=== PATIENT | male | born 1985 | race African-American/Black ===

== ENCOUNTER 2021-05-09 20:15 | Emergency (ER) | payer OTHER ==
[2021-05-09 20:30] LABS: BILIRUBIN,URINE NEGATIVE (NEGATIVE); GLUCOSE, URINE (UA) NEGATIVE (NEGATIVE); KETONES,URINE (UA) NEGATIVE (NEGATIVE); LEUKOCYTE ESTERASE, URINE NEGATIVE (NEGATIVE); NITRITE,URINE NEGATIVE (NEGATIVE); OCCULT BLOOD,URINE LARGE (NEGATIVE); PH,URINE 6.5 PH (5.0-7.5); PROTEIN,URINE 30 mg/dL (NEGATIVE); UROBILINOGEN,URINE 1 (NORMAL) E.U./dL (NORMAL)
[2021-05-09 20:43] LABS: CLARITY,URINE CLOUDY (CLEAR)
[2021-05-09 20:44] LABS: BACTERIA,URINE Few /HPF (None Seen); MUCUS,URINE Marked Strands; RBC,URINE TNTC /HPF (0-5); SQUAMOUS EPITHELIAL CELL,UR RARE Squamous (<= Few); YEAST,URINE PRESENT
--- NOTE | 2021-05-09 22:29 | ED Physician Documentation ---
History of Present Illness - Stated complaint Stated Complaint: BLOOD IN URINE - Chief complaint Chief Complaint: General - History obtained from History obtained from: Patient - Additonal information Additional information: The patient comes to the emergency department with chief complaint of new onset hematuria today. He states is been feeling fine, but noticed that his urine seemed "dark" and slightly red this morning. He states he drank a bunch of water and it seemed to clear up, but then later in the day, he noticed the same thing. He again drink a lot of water and it seemed to clear up, but that when he noticed it a third time this evening, he decided to come in and get checked out. He denies any pain. He feels occasionally a slight pressure in his suprapubic area but no dysuria. No fevers or chills. No nausea or vomiting. No other complaints at this time. Review of Systems Ten Systems: 10 systems reviewed and negative Constitutional: reports: Reviewed and negative Eyes: reports: Reviewed and negative Ears: reports: Reviewed and negative Nose: reports: Reviewed and negative Throat: reports: Reviewed and negative Cardiac: reports: Reviewed and negative Respiratory: reports: Reviewed and negative GI: reports: Reviewed and negative : reports: Hematuria Skin: reports: Reviewed and negative Musculoskeletal: reports: Reviewed and negative Neurologic: reports: Reviewed and negative Psychiatric: reports: Reviewed and negative Endocrine: reports: Reviewed and negative Immunocompromised: reports: Reviewed and negative PD PAST MEDICAL HISTORY - Past Medical History Past Medical History: No - Past Surgical History Past Surgical History: No - Present Medications Home Medications: Ambulatory Orders Medication Instructions Recorded Confirmed No Known Home Medications 05/09/21 05/09/21 - Allergies Allergies/Adverse Reactions: Allergies Allergy/AdvReac Type Severity Reaction Status Date / Time No Known Drug Allergies Allergy Verified 05/09/21 20:17 - Social History Does the pt smoke?: No Smoking Status: Never smoker Does the pt drink ETOH?: Yes Does the pt have substance abuse?: No - Immunizations Immunizations are current?: Yes - POLST Patient has POLST: No PD ED PE NORMAL - Vitals Vital signs reviewed: Yes - General General: Alert and oriented X 3, No acute distress, Well developed/nourished - HEENT HEENT: Atraumatic, PERRL, EOMI, Moist mucous membranes - Neck Neck: Supple, no meningeal sign - Cardiac Cardiac: RRR, No murmur - Respiratory Respiratory: No respiratory distress, Clear bilaterally - Abdomen Abdomen: Soft, Non tender, Non distended - Back Back: No CVA TTP - Derm Derm: Normal color, Warm and dry, No rash - Extremities Extremities: No deformity - Neuro Neuro: Alert and oriented X 3, network management specialist 2-12 intact, Normal speech - Psych Psych: Normal mood, Normal affect Results - Vitals Vitals: Vital Signs - 24 hr 05/09/21 05/09/21 05/09/21 20:17 21:17 22:02 Temperature 36.5 C 36.5 C Heart Rate 52 L 58 L Respiratory 16 15 15 Rate Blood Pressure 152/88 H 155/91 H O2 Saturation 99 100 05/09/21 23:08 Temperature 36.5 C Heart Rate 61 Respiratory 16 Rate Blood Pressure 140/88 H O2 Saturation 99 Oxygen O2 Source Room air - Labs Labs: Laboratory Tests 05/09/21 20:22 Urine Color RED/BLOODY Urine Clarity CLOUDY Urine pH 6.5 Ur Specific [place] 1.025 Urine Protein 30 H Urine Glucose (UA) NEGATIVE Urine Ketones NEGATIVE Urine Occult Blood LARGE H Urine Nitrite NEGATIVE Urine Bilirubin NEGATIVE Urine Urobilinogen 1 (NORMAL) Ur Leukocyte Esterase NEGATIVE Urine RBC TNTC H Urine WBC 6-10 H Ur Squamous Epith Cells RARE Squamous Urine Bacteria Few Urine Mucus Marked Strands Urine Yeast PRESENT Ur Microscopic Review INDICATED Urine Culture Comments NOT INDICATED PD MEDICAL DECISION MAKING - ED course Complexity details: reviewed results, re-evaluated patient, considered differential, d/w patient ED course: The patient was worked up with urinalysis, which showed significant hematuria but no signs of infection, as well as a CT scan of the abdomen and pelvis, which showed 2 stones in the left kidney and a cyst on the right kidney. I discussed with the patient that we have no evidence to point to any reason for his hematuria at this time. The stones visualized in the left kidney are in the kidney still, and not in the process of passage through the ureter. I have advised patient that he needs to follow-up with urology if the bleeding continues . We have discussed the need to drink plenty of fluid and we discu ssed the usual indications for return. Departure - Departure Disposition: 01 Home, Self Care Clinical Impression: Hematuria Qualifiers: Hematuria type: unspecified type Qualified Code(s): R31.9 - Hematuria, unspecified Condition: Stable Instructions: ED Hematuria Comments: You have a cyst on the right kidney and 2 stones in the left kidney which do not appear to be passing at this time. At this point, your urine does not show infection and it is not clear what has caused you to have the bleeding tonight. It is possible that one of your stone shifted and caused some bleeding, although usually should not cause this much. Occasionally cyst can bleed but again this is not very common. You will need to follow-up with the urologist to determine why you are bleeding if your bleeding continues. Otherwise, please drink plenty of fluids to help flush your urinary system out. Discharge Date/Time: 05/09/21 23:08
--- NOTE | 2021-05-09 22:46 | CT Report ---
PROCEDURE: Abdomen/Pelvis WO INDICATIONS: hematuria TECHNIQUE: Noncontrast 5 mm thick sections acquired from the diaphragms to the symphysis. 5 mm coronal and sagi ttal reformats were then performed. For radiation dose reduction, the following was used: automated exposure control, adjustment of mA and/or kV according to patient size. COMPARISON: None. FINDINGS: Image quality: Excellent. ABDOMEN: Lung bases: Lung bases are clear. Heart size is normal. Solid organs: Liver is at the upper limits of normal in size. The spleen is normal in size. Gallbla dder is unremarkable. Pancreas is normal in contours. No adrenal nodules. Kidneys are normal in si ze, without hydronephrosis. There is a calcification within the left renal pelvis measuring 6 mm, Jocelynn nsfield units 1012. Punctate calcification is noted in the superior pole. Simple right renal cyst is present. Peritoneum and bowel: Unenhanced bowel loops demonstrate normal wall thickness and caliber. No free fluid or air. Appendix is normal. Nodes and vessels: No retroperitoneal or mesenteric adenopathy by size criteria. Aorta and inferior vena cava are normal in caliber. Miscellaneous: No ventral hernias. PELVIS: Genitourinary: Bladder wall thickness is normal. Miscellaneous: No inguinal hernias or adenopathy. Bones: No suspicious bony lesions. No vertebral body compression fractures. IMPRESSION: 1. Nonobstructing left renal calculi as above. Reviewed by: Erika Bradshaw MD on 05/09/2021 10:44 PM PST Approved by: Erika Bradshaw MD on 05/09/2021 10:44 PM PST Station ID: [id number]
[2021-05-09 23:09] VITALS: BP 140/88
== END 2021-05-09 23:08 | disposition home or self-care (01) ==
LOC: ED 20:15
DX: N20.0 Calculus of kidney (principal); R31.9 Hematuria, unspecified
CPT/HCPCS: 81001; 81003; 87086; 99282; 99284

== ENCOUNTER 2022-10-30 17:20 | Outpatient (CLI) | payer BC | END 2022-10-30 23:59 | disposition left against medical advice (07) | LOC: EMS 17:20 | DX: S00.81XA Abrasion of other part of head, initial encounter (principal); S50.811A Abrasion of right forearm, initial encounter; V13.4XXA Pedal cycle driver injured in collision with car, pick-up truck or van in traffic accident, initial encounter; Y93.55 Activity, bike riding; Y92.414 Local residential or business street as the place of occurrence of the external cause ==

== ENCOUNTER 2022-10-30 18:34 | Emergency (ER) | payer BC, OTHER ==
[2022-10-30] MEDS ORDERED: IBUPROFEN 800 MG TABLET PO STA (19:16)
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
[2022-10-30 20:41] VITALS: BP 128/88
== END 2022-10-30 20:40 | disposition home or self-care (01) ==
LOC: ED 18:34
DX: S00.83XA Contusion of other part of head, initial encounter (principal); S50.11XA Contusion of right forearm, initial encounter; V03.99XA Pedestrian with other conveyance injured in collision with car, pick-up truck or van, unspecified whether traffic or nontraffic accident, initial encounter
CPT/HCPCS: 70486; 73080; 99283; 99284; A9270

== ENCOUNTER 2022-11-05 14:45 | Outpatient (CLI) | payer BC ==
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
== END 2022-11-05 15:00 | disposition home or self-care (01) ==
LOC: DI.N 14:45
PROVIDERS: ATTEND Physician Assistant Medical
DX: S43.101A Unspecified dislocation of right acromioclavicular joint, initial encounter (principal)

== ENCOUNTER 2023-10-22 08:00 | Outpatient (CLI) | payer BC, OTHER ==
[2023-10-22 23:17] LABS: NEISSERIA GONORRHOEAE DNA NEGATIVE (NEGATIVE); TRICHOMONAS VAGINALIS DNA NEGATIVE (NEGATIVE)
[2023-10-22 23:31] LABS: CHLAMYDIA TRACHOMATIS DNA POSITIVE (NEGATIVE)
== END 2023-10-22 23:59 | disposition home or self-care (01) ==
LOC: LAB.N 08:00
PROVIDERS: ATTEND Physician Assistant Medical
DX: R82.81 Pyuria (principal); Z11.3 Encounter for screening for infections with a predominantly sexual mode of transmission
CPT/HCPCS: 87086; 87491; 87591; 87661

== ENCOUNTER 2023-10-22 15:00 | Outpatient (CLI) | payer BC, OTHER ==
--- NOTE | 2023-10-22 17:41 | XRAY Report ---
PROCEDURE: Abdomen 1 V INDICATIONS: KIDNEY STONE TECHNIQUE: One view of the abdomen acquired. COMPARISON: 01/10/2022 Findings and impression: Nonobstructive, nonspecific bowel gas pattern. Suspected multiple left renal calculi, largest measuri ng up to 1.6 cm. [place] is increased compared to 2021 imaging. No suspicious osseous finding. Reviewed by: Bhavin Back MD on 10/22/2023 5:40 PM PDT Approved by: Bhavin Back MD on 10/22/2023 5:40 PM PDT Station ID: [id number]
== END 2023-10-22 15:01 | disposition home or self-care (01) ==
LOC: DI.N 15:00
PROVIDERS: ATTEND Physician Assistant Medical
DX: N20.0 Calculus of kidney (principal); R82.81 Pyuria; Z11.3 Encounter for screening for infections with a predominantly sexual mode of transmission
CPT/HCPCS: 87086; 87491; 87591; 87661